=== PATIENT | male | born 1945 | race Caucasian/White ===

== ENCOUNTER → 2019-01-25 | Outpatient (CLI) | payer MEDICARE, OTHER ==
[~2019-01-25] MED LIST: ASCO500 PO; GLUC500 PO; Vitamin B Comple1 EA PO
== END | disposition home or self-care (01) ==
LOC: PLD 12:00 → LAB SHORT 12:00
DX: L57.0 Actinic keratosis (principal)
CPT/HCPCS: 88305

== ENCOUNTER 2023-12-10 07:59 | Emergency (ER) | payer MEDICARE, OTHER ==
[~2023-12-10] VITALS: Ht 188 cm; Wt 80.7 kg
[~2023-12-10 07:59] MED LIST changes: +AMOCLA875 PO
[2023-12-10 08:43] LABS: BASOPHILS ABSOLUTE AUTO 0.05 K/mm3 (0.00-0.23); BASOPHILS PERCENT AUTO 1 % (0-2); EOSINOPHILS ABSOLUTE AUTO 0.02 K/mm3 (0.00-0.68); EOSINOPHILS PERCENT AUTO 0 % (0-6); Hematocrit 37.7 % (37.0-53.0); Hemoglobin 12.9 g/dL (13.5-17.5); IMMATURE GRAN ABSOLUTE AUTO 0.02 K/mm3 (0.00-0.10); IMMATURE GRAN PERCENT AUTO 0 % (0-1); LYMPHOCYTES ABSOLUTE AUTO 1.11 K/mm3 (0.84-5.20); LYMPHOCYTES PERCENT AUTO 12 % (21-46); MONOCYTES ABSOLUTE AUTO 0.55 K/mm3 (0.16-1.47); MONOCYTES PERCENT AUTO 6 % (4-13); Mean Corpuscular HGB 33.6 pg (26.0-34.0); Mean Corpuscular HGB Conc 34.2 g/dL (31.5-36.5); Mean Corpuscular Volume 98 fL (80-100); Mean Platelet Volume 11.1 fL (9.1-12.4); NEUTROPHILS PERCENT AUTO 82 % (41-73); Platelet Count 184 K/mm3 (150-400); RDW Coefficient Variation 12.8 % (11.7-14.2); RDW Standard Deviation 46.1 fL (35.1-46.3); Red Blood Cell Count 3.84 M/mm3 (4.30-5.90); White Blood Cell Count 9.55 K/mm3 (4.00-11.30)
[2023-12-10 09:02] LABS: Albumin, Blood 3.2 g/dL (3.4-5.0); Albumin/Globulin Ratio 0.7 (0.8-1.8); Bilirubin, Total 0.9 mg/dL (0.1-1.0); Bun/Creatinine Ratio 18.4 (12.0-20.0); Calcium, Blood 8.8 mg/dL (8.5-10.1); Creatinine, Blood 0.65 mg/dL (0.60-1.20); Globulin, Blood 4.8 g/dL (2.2-4.0); Potassium, Blood 3.8 mmol/L (3.5-5.5)
[2023-12-10] MEDS ORDERED: Dexamethasone Sod Phos 10 MG/ML 1ML VIAL PO ONE (10:35)
[2023-12-10] MEDS ORDERED: NS 1,000 ML IV SCH (10:45)
[2023-12-10 12:05] VITALS: BP 153/76
== END 2023-12-10 12:06 | disposition home or self-care (01) ==
LOC: ER 07:59
PROVIDERS: Physician Assistant
DX: K11.5 Sialolithiasis (principal); Z79.899 Other long term (current) drug therapy
CPT/HCPCS: 70491; 80053; 84145; 85025; 99283-25; J1100; J7030; Q9967

== ENCOUNTER 2024-07-30 17:59 | Observation (INO) | payer MEDICARE, OTHER ==
[~2024-07-30] VITALS: Ht 188 cm; Wt 78.4 kg
[~2024-07-30 17:59] MED LIST changes: -ELIQUIS5 M2 PO; -ERGO400 PO; -MECL25 PO
[2024-07-30 18:43] LABS: BASOPHILS ABSOLUTE AUTO 0.04 K/mm3 (0.00-0.23); BASOPHILS PERCENT AUTO 1 % (0-2); EOSINOPHILS ABSOLUTE AUTO 0.02 K/mm3 (0.00-0.68); EOSINOPHILS PERCENT AUTO 0 % (0-6); Hematocrit 38.3 % (37.0-53.0); Hemoglobin 13.2 g/dL (13.5-17.5); IMMATURE GRAN PERCENT AUTO 0 % (0-1); LYMPHOCYTES ABSOLUTE AUTO 1.24 K/mm3 (0.84-5.20); LYMPHOCYTES PERCENT AUTO 24 % (21-46); MONOCYTES ABSOLUTE AUTO 0.33 K/mm3 (0.16-1.47); MONOCYTES PERCENT AUTO 6 % (4-13); Mean Corpuscular HGB 33.7 pg (26.0-34.0); Mean Corpuscular HGB Conc 34.5 g/dL (31.5-36.5); Mean Corpuscular Volume 98 fL (80-100); Mean Platelet Volume 11.2 fL (9.1-12.4); NEUTROPHILS ABSOLUTE AUTO 3.62 K/mm3 (1.96-9.15); NEUTROPHILS PERCENT AUTO 69 % (41-73); Platelet Count 203 K/mm3 (150-400); RDW Coefficient Variation 13.2 % (11.7-14.2); RDW Standard Deviation 46.8 fL (35.1-46.3); Red Blood Cell Count 3.92 M/mm3 (4.30-5.90); White Blood Cell Count 5.25 K/mm3 (4.00-11.30)
[2024-07-30 19:05] LABS: Albumin, Blood 3.5 g/dL (3.4-5.0); Albumin/Globulin Ratio 0.8 (0.8-1.8); Bilirubin, Total 0.6 mg/dL (0.1-1.0); Calcium, Blood 8.8 mg/dL (8.5-10.1); Creatinine, Blood 0.83 mg/dL (0.60-1.20); Globulin, Blood 4.4 g/dL (2.2-4.0); Potassium, Blood 4.1 mmol/L (3.5-5.5); Total Protein, Blood 7.9 g/dL (6.4-8.2)
[2024-07-30] MEDS ORDERED: MECL25 PO (19:50)
[2024-07-30] MEDS ORDERED: NS 1,000 ML IV SCH (22:55)
[2024-07-30] MEDS ORDERED: Ondansetron HCl 2 MG / ML 2ML Vial IV PRN (22:55)
[2024-07-30] MEDS ORDERED: Aspirin 81 MG Chew PO SCH (23:00)
[2024-07-30] MEDS ORDERED: Meclizine HCl 25 MG Tab PO SCH (23:00)
[2024-07-30] MEDS ORDERED: Enoxaparin 40 MG/0.4 ML SYR SC SCH (23:00)
[2024-07-30] MEDS ORDERED: ELIQUIS5 M2 PO ×2 (23:02)
--- NOTE | 2024-07-31 | NUR ---
ADMISSION NOTE PT ARRIVED TO 310 AT 0000. PT WAS AOX4, PLEASANT, CALM, AND COOPERATIVE. PT REPORTED NO S/S OF VERTIGO OR SYNCOPE SINCE ARRIVING TO ED. EDUCATED PT ON USE OF CALL LIGHT, EMPHASIZING USE WHEN IN NEED OF TOILETING. PT VERBALIZED UNDERSTANDING. PT WAS SBA UP AND AMBULATING. PT WAS PLACED ON TELE. PT WAS ON RA, NO C/O SOB, CHEST PAIN, DISTRESS. BED LOCKED IN LOWEST POSITION. THIS RN TO ASSUME CARE.
[2024-07-31 00:01] VITALS: BP 116/79
[2024-07-31 00:07] LABS: Bun/Creatinine Ratio 21.5 (12.0-20.0); Calcium, Blood 8.6 mg/dL (8.5-10.1); Creatinine, Blood 0.79 mg/dL (0.60-1.20); Potassium, Blood 3.7 mmol/L (3.5-5.5)
[2024-07-31 00:15] LABS: Source, Urine Clean Catch
[2024-07-31] MEDS ORDERED: ERGO400 PO ×2 (00:21)
[2024-07-31 00:47] LABS: Bilirubin, Urine Neg (Neg); Blood, Urine Neg (Neg); Glucose Qualitative, Urine Neg (Neg); Ketones, Urine Neg (Neg); Leukocyte Esterase, Urine Neg (Neg); Nitrite, Urine Neg (Neg); Protein, Urine Neg (Neg); Urobilinogen, Urine NORM (Normal); pH, Urine 6.5 (5.0-8.0)
[2024-07-31 01:07] LABS: U Amphetamine Screen Not Detected; U Barbituate Screen Not Detected; U Benzodiazapine Screen Not Detected; U Buprenorphine Screen Not Detected; U Cannabinoids Screen Not Detected; U Cocaine Screen Not Detected; U Methadone Screen Not Detected; U Methamphetamine Screen Not Detected; U Opiates Screen Not Detected; U Oxycodone Screen Not Detected; U Phencyclidine Screen Not Detected
[2024-07-31 01:22] LABS: Appearance, Urine Clear (Clear); Color, Urine Pale Yellow (P-Yellow)
[2024-07-31 04:38] VITALS: BP 122/75
[2024-07-31 07:27] LABS: BASOPHILS ABSOLUTE AUTO 0.03 K/mm3 (0.00-0.23); BASOPHILS PERCENT AUTO 1 % (0-2); EOSINOPHILS ABSOLUTE AUTO 0.06 K/mm3 (0.00-0.68); EOSINOPHILS PERCENT AUTO 2 % (0-6); Hematocrit 35.1 % (37.0-53.0); Hemoglobin 11.8 g/dL (13.5-17.5); IMMATURE GRAN PERCENT AUTO 0 % (0-1); LYMPHOCYTES ABSOLUTE AUTO 1.75 K/mm3 (0.84-5.20); LYMPHOCYTES PERCENT AUTO 46 % (21-46); MONOCYTES PERCENT AUTO 8 % (4-13); Mean Corpuscular HGB 33.4 pg (26.0-34.0); Mean Corpuscular HGB Conc 33.6 g/dL (31.5-36.5); Mean Corpuscular Volume 99 fL (80-100); Mean Platelet Volume 11.5 fL (9.1-12.4); NEUTROPHILS ABSOLUTE AUTO 1.69 K/mm3 (1.96-9.15); NEUTROPHILS PERCENT AUTO 44 % (41-73); Platelet Count 176 K/mm3 (150-400); RDW Coefficient Variation 13.2 % (11.7-14.2); RDW Standard Deviation 47.8 fL (35.1-46.3); Red Blood Cell Count 3.53 M/mm3 (4.30-5.90); White Blood Cell Count 3.83 K/mm3 (4.00-11.30)
[2024-07-31 07:32] VITALS: BP 138/82
[2024-07-31 07:47] LABS: Albumin/Globulin Ratio 0.8 (0.8-1.8); Bilirubin, Total 0.8 mg/dL (0.1-1.0); Bun/Creatinine Ratio 22.3 (12.0-20.0); Calcium, Blood 8.4 mg/dL (8.5-10.1); Creatinine, Blood 0.76 mg/dL (0.60-1.20); Globulin, Blood 3.8 g/dL (2.2-4.0); Potassium, Blood 3.7 mmol/L (3.5-5.5); Total Protein, Blood 6.8 g/dL (6.4-8.2)
--- NOTE | 2024-07-31 08:11 | NUR ---
SHIFT SUMMARY PT HAS BEEN RESTING IN BED OVERNIGHT. PT HAS BEEN AOX4, CALM AND COOPERATIVE. PT HAS NOT HAD ANY C/O VERTIGO OVERNIGHT. PT REPORTED NO PAIN OR DISCOMFORT OVERNIGHT. PT HAS BEEN ON TELE, RUNNING BRADYCARDIA, WHICH ACCORDING TO PT, IS NORMAL FOR HIM. PT HAS BEEN SBA TO RESTROOM. NO COMPLAINTS FROM PT AND NO ACUTE EVENTS OVERNIGHT.
[2024-07-31] MEDS ORDERED: Aspirin 81 MG Chew PO SCH (09:00)
[2024-07-31] MEDS ORDERED: Apixaban 5 MG Tab PO SCH (09:00)
[2024-07-31 12:32] VITALS: BP 139/84
[2024-07-31 12:33] VITALS: BP 144/85
[2024-07-31 12:34] VITALS: BP 132/83
[2024-07-31] MEDS ORDERED: MECL25 PO ×2 (15:17)
--- NOTE | 2024-07-31 19:37 | NUR ---
PT DISCHARGED 1550 WITH DC INSTRUCTIONS. ECHO AND MRI COMPLETE, CALLED DR SHEETS TO NOTIFY OF RESULTS. PT STATES HE HAS HAD NO DIZZINESS SINCE MECLIZINE STARTED. WHEELCHAIR ESCORT OUT TO CAR
== END 2024-07-31 15:50 | disposition home or self-care (01) ==
LOC: ER 17:59 → ERHOLD 18:00 → MEDS 18:00
PROVIDERS: Emergency Medicine; ADMIT Internal Medicine
DX: R55 Syncope and collapse (principal); R79.89 Other specified abnormal findings of blood chemistry; Z79.01 Long term (current) use of anticoagulants; Z79.899 Other long term (current) drug therapy
CPT/HCPCS: 36415; 70496; 70498; 70551; 71046; 80048; 80053; 81003; 83880; 84484; 85025; 85379; 93005; 93010; 93306; 96372; 97110; 97161; 99285-25; A9270; G0378; J1650; J7030; Q9967

== ENCOUNTER → 2024-07-30 | Outpatient (CLI) | payer MEDICARE, OTHER ==
[~2024-07-30] MED LIST changes: +ELIQUIS5 M2 PO; +ERGO400 PO; +MECL25 PO
[2024-07-30 17:59] LABS: BASOPHILS ABSOLUTE AUTO 0.04 K/mm3 (0.00-0.23); BASOPHILS PERCENT AUTO 1 % (0-2); EOSINOPHILS ABSOLUTE AUTO 0.03 K/mm3 (0.00-0.68); EOSINOPHILS PERCENT AUTO 1 % (0-6); Hematocrit 40.4 % (37.0-53.0); Hemoglobin 13.7 g/dL (13.5-17.5); IMMATURE GRAN ABSOLUTE AUTO 0.01 K/mm3 (0.00-0.10); IMMATURE GRAN PERCENT AUTO 0 % (0-1); LYMPHOCYTES ABSOLUTE AUTO 1.26 K/mm3 (0.84-5.20); LYMPHOCYTES PERCENT AUTO 23 % (21-46); MONOCYTES ABSOLUTE AUTO 0.44 K/mm3 (0.16-1.47); MONOCYTES PERCENT AUTO 8 % (4-13); Mean Corpuscular HGB 33.5 pg (26.0-34.0); Mean Corpuscular HGB Conc 33.9 g/dL (31.5-36.5); Mean Corpuscular Volume 99 fL (80-100); NEUTROPHILS ABSOLUTE AUTO 3.74 K/mm3 (1.96-9.15); NEUTROPHILS PERCENT AUTO 68 % (41-73); Platelet Count 209 K/mm3 (150-400); RDW Coefficient Variation 13.1 % (11.7-14.2); RDW Standard Deviation 47.5 fL (35.1-46.3); Red Blood Cell Count 4.09 M/mm3 (4.30-5.90); White Blood Cell Count 5.52 K/mm3 (4.00-11.30)
[2024-07-30 18:55] LABS: Albumin, Blood 2.6 g/dL (3.4-5.0); Albumin/Globulin Ratio 0.5 (0.8-1.8); Bilirubin, Total 0.6 mg/dL (0.1-1.0); Bun/Creatinine Ratio 20.8 (12.0-20.0); Calcium, Blood 8.9 mg/dL (8.5-10.1); Creatinine, Blood 0.82 mg/dL (0.60-1.20); Globulin, Blood 5.4 g/dL (2.2-4.0)
== END ==
LOC: LAB 17:53 → LAB SHORT 17:53
PROVIDERS: Emergency Medicine
DX: R55 Syncope and collapse (principal)
CPT/HCPCS: 80053; 84484; 85025

== ENCOUNTER 2025-02-13 07:09 | Day surgery (SDC) | payer MEDICARE, OTHER ==
[~2025-02-13] VITALS: Ht 188 cm; Wt 80.5 kg
[2025-02-13] VITALS (10 sets, daily range): BP systolic 102–146; BP diastolic 68–116
[~2025-02-13 07:09] MED LIST changes: +ELIQUIS5 M2 PO; +ERGO400 PO; +MECL25 PO
[2025-02-13] MEDS ORDERED: NS 1,000 ML IV ONE ×2 (07:37→07:58)
[2025-02-13] MEDS ORDERED: CeFAZolin Sodium 1000 mg Vial ONE (07:37)
[2025-02-13] MEDS ORDERED: Heparin Sodium 1000 Units/ML 10ML MDV ONE (07:37)
[2025-02-13] MEDS ORDERED: Midazolam HCl 1MG / ML 2ML Vial ONE (07:58)
[2025-02-13] MEDS ORDERED: FentaNYL Citrate 50 MCG/ML 2 ML Injection ONE (07:58)
[2025-02-13] MEDS ORDERED: CeFAZolin Sodium 2,000 MG VIAL ONE (07:58)
[2025-02-13] MEDS ORDERED: NS 100 ML IV ONE (07:59)
[2025-02-13] MEDS ORDERED: Metoprolol Tartrate 5 ML IV ONE ×2 (09:17→09:22)
--- NOTE | 2025-02-13 10:15 | NUR ---
PATIENT ARRIVED BACK TO RECOVERY ROOM SITTING UPRIGHT IN RECLINER, CONVERSING APPROPRIATELY. R CHEST DRESSING DRY AND INTACT WITH MINIMAL OOZING. VSS ON RA
[2025-02-13] MEDS ORDERED: METO25 PO (10:40)
--- NOTE | 2025-02-13 10:45 | NUR ---
NEW MEDICATION CALLED [facility]. PATIENT SITTING UPRIGHT IN RECLINER, TOLERATING PO INTAKE WELL. SPOUSE PRESENT AT BEDSIDE. VSS ON RA. RIGHT CHEST DRESSING DRY AND INTACT. PATIENT DENYING ANY PAIN.
--- NOTE | 2025-02-13 11:15 | NUR ---
CHEST X RAY PERFORMED. MD AWARE. PATIENT AMBULATING AND VOIDING WITHOUT DIFFICULTY. RIGHT CHEST DRESSING DRY AND INTACT. VSS ON RA.
--- NOTE | 2025-02-13 12:00 | NUR ---
DISCHARGE INSTRUCTIONS REVIEWED WITH PATIENT AND SPOUSE. ALL QUESTIONS WERE ANSWERED. RIGHT CHEST DRESSING DRY AND INTACT. VSS ON RA.
--- NOTE | 2025-02-13 12:12 | NUR ---
PATIENT DISCHARGED HOME AT THIS TIME. PATIENT WHEELED TO HOSPITAL ENTRANCE AND SPOUSE ABLE TO PROVIDE TRANSPORTATION HOME. DISCHARGE INSTRUCTIONS REVIEWED. ALL PATIENT BELONGINGS AND PAPERWORK LEFT WITH PATIENT. RIGHT CHEST DRESSING DRY AND INTACT. VSS ON RA. PIV REMOVED WITHOUT DIFFICULTY, CATHETER INTACT.
== END 2025-02-13 12:11 | disposition home or self-care (01) ==
LOC: MHTC 07:09
DX: I49.5 Sick sinus syndrome (principal); I48.92 Unspecified atrial flutter; I47.20 Ventricular tachycardia, unspecified; I48.91 Unspecified atrial fibrillation; E78.5 Hyperlipidemia, unspecified
CPT/HCPCS: 33208; 71046; 93005; 93010; 99152; 99153; A9270; C1785; C1894; C1898; J0461; J0690; J1644; J2250; J3010; J7030; J7040; Q9967